=== PATIENT | female | born 2000 | race American Indian/Alaskan Native ===

== ENCOUNTER 2018-05-13 16:16 | Emergency (ER) | payer BC ==
[2018-05-13 16:25] VITALS: RESP 18; TEMP 98; O2SAT 100
[2018-05-13] MEDS ORDERED: Phenylephrine 0.5% Nasal Spray (15 ml) NAS STA (17:02)
[2018-05-13] MEDS ORDERED: Phenylephrine 1% Nasal Spray (15 ml) ONE (17:12)
--- NOTE | 2018-05-13 17:32 | C.PDOC ---
History Of Present Illness 18 y/o female comes in to ED complaining of intermittent epistaxis from her right nostril for the past 2-3 days. Patient has a history of epistaxis particularly in the winter time. She denies any trauma, fever, headache, or dizziness. Time Seen by Provider: 05/13/18 16:27 Chief Complaint (Nursing): ENT Problem History Per: Patient History/Exam Limitations: None Onset/Duration Of Symptoms: Days Current Symptoms Are (Timing): Still Present Past Medical History Reviewed: Historical Data, Nursing Documentation, Vital Signs Vital Signs: Last Vital Signs Temp 98 F 05/13/18 16:22 Pulse 68 05/13/18 16:22 Resp 18 05/13/18 16:22 BP 135/83 05/13/18 16:22 Pulse Ox 100 05/13/18 16:22 Family History: States: No Known Family Hx - Social History Hx Alcohol Use: No Hx Substance Use: No Review Of Systems Constitutional: Negative for: Fever, Chills ENT: Positive for: Other (epistaxis) Neurological: Negative for: Headache, Dizziness Physical Exam - Physical Exam Appears: Non-toxic, No Acute Distress Skin: Warm, Dry Head: Atraumatic, Normacephalic Eye(s): bilateral: Normal Inspection Nose: Other (right nare: small clot in lateral nasal wall, no active bleeding) Oral Mucosa: Moist, Other (no blood in oral pharynx) Neck: Supple Cardiovascular: Rhythm Regular, No Murmur Respiratory: Normal Breath Sounds, No Rales, No Rhonchi, No Wheezing Extremity: Bilateral: Atraumatic, Normal Color And Temperature, Normal ROM Neurological/Psych: Oriented x3, Normal Speech ED Course And Treatment O2 Sat by Pulse Oximetry: 100 (RA) Pulse Ox Interpretation: Normal Progress Note: Used neosynephrine spray in right nare. Instructed patient to follow up with ENT specialist. Disposition Counseled Patient/Family Regarding: Diagnosis, Need For Followup - Disposition Referrals: Juan Gipson MD [Staff Provider] - Disposition: HOME/ ROUTINE Disposition Time: 17:30 Condition: STABLE Additional Instructions: FOLLOW UP WITH ENT SPECIALIST WITHIN 1 WEEK USE NASAL SPRAY NEEDED RETURN TO ER IF SYMPTOMS WORSEN Instructions: Nosebleeds (DC) Forms: [employer] (Polish), School Excuse Print Language: GERMAN - Clinical Impression Clinical Impression: Right-sided epistaxis - Scribe Statement The provider has reviewed the documentation as recorded by the Heroibharleen Moreau Provider Attestation: All medical record entries made by the Heroibharleen were at my direction and personally dictated by me. I have reviewed the chart and agree that the record accurately reflects my personal performance of the history, physical exam, medic al decision making, and the department course for this patient. I have also personally directed, reviewed, and agree with the discharge instructions and disposition.
[2018-05-13 17:43] VITALS: BP 125/84; PULSE 72
== END 2018-05-13 17:39 | disposition home or self-care (01) ==
LOC: C.ER 16:16
DX: R04.0 Epistaxis (principal)